=== PATIENT | male | born 1940 | race Caucasian/White ===

== ENCOUNTER 2017-04-29 10:32 | Day surgery (SDC) | payer MEDICARE ==
[~2017-04-29] VITALS: Ht 193 cm; Wt 95.5 kg
[~2017-04-29 10:32] MED LIST: ACET1TAB64 PO; AMIO200T42 PO; APIX5TAB PO; ASCO10004 PO; CALCIUM PO; CHOL200024 PO; COLC0.6T37 PO; DIGO125T PO; DOCUSATE SENNA PO; ELOQUIS PO; FISH OIL OMEGA1 EACH PO; FURO40TA6 PO; GLUC-121 PO; LISI5TAB7 PO; LOVA20TA2 PO; METH5TAB6 PO; MULT-412 PO; POTA20TA89 PO; SOTA120T26 PO
[2017-04-29 11:05] VITALS: BP 124/83
[2017-04-29] MEDS ORDERED: MULT-6 PO (11:28)
[2017-04-29] MEDS ORDERED: LEVO25TA4 PO (11:28)
[2017-04-29] MEDS ORDERED: TAMS0.4C2 PO (11:28)
[2017-04-29] MEDS ORDERED: SODIUM CHLORIDE 0.9% 1,000 ML IV SCH (11:30)
[2017-04-29] MEDS ORDERED: PROPOFOL 10 MG/ML, 20ML ONE (12:10)
== END 2017-04-29 13:50 ==
LOC: CACL 10:32
PROVIDERS: ATTEND Internal Medicine Cardiovascular Disease
DX: I48.91 Unspecified atrial fibrillation (principal); I10 Essential (primary) hypertension; E03.9 Hypothyroidism, unspecified; Z86.73 Personal history of transient ischemic attack (TIA), and cerebral infarction without residual deficits
CPT/HCPCS: 92960; 93312; 93325; J2704